=== PATIENT | female | born 1960 | race Caucasian/White ===

== ENCOUNTER → 2016-12-26 | Outpatient (CLI) | payer MEDICARE, OTHER ==
[~2016-12-26] MED LIST: ANEXSIA 7.5/3251 TA1 PO; BACTRIM DS TABL1 TAB PO; CIPRO PO; DILANTIN PO; ELOCON15 GM TOP; EPIPEN JR0.15 MG/01 INJ; FAMOTIDINE PO; FIORICET1 TAB PO; IBUPROFEN PO; LEVAQUIN PO; LORTAB 7.5-5001 TAB PO; MEDROL4 MG/DOSE- PO; MOBIC PO; PRILOSEC PO; RESTLESS LEGS; ZOFRAN PO; ZYRTEC10 M2 PO; [UNRECOGNIZED DRUG - REMARK]
--- NOTE | ~2016-12-26 | US128 ---
[id number] [address] [address] [id number] O MR#: [id number] Acc #: [id number] NAME: CARROLL CASTRO : 1960 SEX: F STUDY DATE/TIME: 12/26/2016 15:32 UNIT: SGUS ROOM: STUDY DESCRIPTION: Thyroid Attending Physician: Cesia Thomas M.D. Referring Physician: Cesia Thomas M.D. Ordering Physician: Cesia Thomas M.D. Primary Care Physician: Fernanda Warner M.D. MEDICAL IMAGING REPORT This report is preliminary unless electronic signature is present. EXAM Thyroid ultrasound 12/26/2016 CLINICAL HISTORY Routine follow-up for thyroid nodules. No symptoms. FINDINGS The right lobe of the gland appears fairly diffusely heterogeneously enlarged as does the left and vascularity is diminished, particularly when compared to the prior study when the right lobe appeared hypervascular. A few areas appear to have been measured almost at random. No convincing discreet nodule is demonstrated in the gland on either side. IMPRESSION 1. Diffuse thyromegaly. No definite discrete nodule. Most notable overall is enlargement of the right lobe greater than left and previously hypervascular gland overall is now relatively hypovascular. 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 2. There is certainly no evidence of any suspicious nodule meeting imaging criteria for tissue sampling. Dictated by... Chaim Munguia M.D. THIS IS AN ELECTRONICALLY VERIFIED REPORT Chaim Munguia M.D. at 12/29/2016 1:49 PM MONICA/shaun TD: 12/27/2016 08:41 JOB #: [id number] MEDICAL IMAGING REPORT Page 1 of 1
== END | disposition home or self-care (01) ==
LOC: SGUS 15:12
DX: E04.2 Nontoxic multinodular goiter (principal)
CPT/HCPCS: 76536

== ENCOUNTER → 2017-03-13 | Outpatient (CLI) | payer MEDICARE, OTHER | END | disposition home or self-care (01) | LOC: SLAB 18:36 | DX: T78.40XD Allergy, unspecified, subsequent encounter (principal); L50.0 Allergic urticaria | CPT/HCPCS: 36415; 86003 ==

== ENCOUNTER 2017-03-16 16:53 | Emergency (ER) | payer MEDICARE, OTHER ==
[~2017-03-16] VITALS: Ht 154.9 cm; Wt 58.0 kg
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
[~2017-03-16 16:53] MED LIST changes: -EPIPEN JR0.15 MG/01 INJ; -RESTLESS LEGS; -ZYRTEC10 M2 PO
[2017-03-16] MEDS ORDERED: EPIPEN JR0.15 MG/01 INJ (17:07)
[2017-03-16] MEDS ORDERED: ZYRTEC10 M2 PO (17:07)
[2017-03-16] MEDS ORDERED: RESTLESS LEGS (17:08)
== END 2017-03-16 18:28 | disposition home or self-care (01) ==
LOC: SED 16:53
DX: S61.432A Puncture wound without foreign body of left hand, initial encounter (principal); F17.210 Nicotine dependence, cigarettes, uncomplicated; Z79.899 Other long term (current) drug therapy; Z88.5 Allergy status to narcotic agent; W26.8XXA Contact with other sharp object(s), not elsewhere classified, initial encounter; Y92.009 Unspecified place in unspecified non-institutional (private) residence as the place of occurrence of the external cause
CPT/HCPCS: 73130; 99283